=== PATIENT | male | born 2000 | race Caucasian/White ===

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

== ENCOUNTER 2022-02-15 00:31 | Emergency (ER) | payer MEDICAID, SELFPAY ==
[2022-02-15 00:33] VITALS: BP 159/93; PULSE 61; RESP 18; TEMP 36.6; O2SAT 100; BMI 28.6
--- NOTE | 2022-02-15 02:20 | RAD_ITS ---
INDICATION: CP EXAMINATION: Frontal and lateral views of the chest. COMPARISON: Chest x-ray from December 22, 2019. FINDINGS: Frontal and lateral views of the chest were obtained. The cardiac silhouette is not enlarged. No confluent airspace disease. No pleural effusion or pneumothorax. No acute fracture identified. RAD/Chest PA and Lateral IMPRESSION: No acute pulmonary disease. Electronically Signed: Fareed Gao MD at 2:58 EDT ,
--- NOTE | 2022-02-15 04:04 | ED.RN ---
SEE DOWN TIME CHARTING FROM [id number]
[2022-02-15 04:31] VITALS: BP 134/80; PULSE 52; RESP 18; TEMP 36.8; O2SAT 100
[2022-02-15 07:23] LABS: Absolute Lymphocyte Count 2.55 X10^3/uL (0.83-4.51); Absolute Neutrophil Count 4.7 X10^3/uL (2.0-7.7); Basophil# 0.09 X10^3/uL; Basophil% 1.1 % (0-1); Eosinophil# 0.24 X10^3/uL; Eosinophils% 2.9 % (0-5); Hematocrit 38.6 % (40-54); Hemoglobin 13.6 g/dL (13.0-16.5); Lymphocyte # 2.55 X10^3/ul (0.83-4.51); Lymphocyte % 31.1 % (19-41); Mean Corp Hgb Conc 35.2 g/dL (32-36); Mean Corpuscular Hgb 31.9 pg (27.0-32.0); Mean Corpuscular Volume 90.6 fL (80-94); Mean Platelet Vol. 10.6 fl (6.2-12.0); Monocyte# 0.63 X10^3/uL; Monocyte% 7.7 % (0-10); NRBC Flagged by Analyzer 0 % (0-5); Neutrophil # 4.68 X10^3/uL (2.7-7.7); Neutrophil % 57.1 % (47-70); Platelet Count 214 K/mm3 (150-450); RBC Distribution Width SD 39.7 fl (35.1-43.9); Red Blood Count 4.26 M/mm3 (4.6-6.2); White Blood Count 8.2 K/mm3 (4.4-11.0)
[2022-02-15 07:24] LABS: D-Dimer Quantitative (DVT/PE) 0.36 FEU/ug/m (0.27-0.49)
[2022-02-15 07:47] LABS: Anion Gap 4 (5-15); BUN 15 mg/dL (7-18); BUN/Creat Ratio 15.3 RATIO (10-20); Chloride 106 mmol/L (98-107); Creatinine, Serum 0.98 mg/dL (0.70-1.30); EST Glomerular Filtration Rate 103 mL/min (>60); Est Glom Filt Rate - Afr Amer 125 mL/min (>60); Estimated Creatinine Clearance 123.12 ml/min; Glucose 87 mg/dL (74-106); Potassium 3.8 mmol/L (3.5-5.1); Sodium Level 140 mmol/L (136-145)
--- NOTE | 2022-02-15 08:30 | EX.ED.DYSGE1 ---
HPI History of Present Illness Chief Complaint: GI Bleed Informant: patient Onset/Context/Timing Onset: Today (JPTA) Context: Sudden Onset Timing: - (once) Quality: spit up a lot of blood Location: unclear; throat? 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 He states suddenly he felt like he needed to gag and spit something up and he ended up spitting up a lot of blood. He states he felt like he was going to vomit initially, almost gagging, but he never vomited and he did not cough it up. He states he does not know where it came from maybe his throat. Right now he is asymptomatic except for having some mild mid chest pain and left upper quadrant pain, but afterwards he felt a little lightheaded but he did not have any near-syncope or syncope. States he has never had this happen before. He denies any recent nosebleed. No recent injury or illness. He has not been coughing recently. No leg pain or swelling. No recent travel out of the area or history of DVT/PE. He is healthy otherwise and takes no medications or drugs. PFSH PFSH Medical History no medical history no medical history Home Medications fluticasone propionate 50 mcg/actuation nasal spray,suspension 1 spray NASAL DAILY PRN PRN Congestion 12/22/19 [History Last Taken Unknown] loratadine 10 mg capsule 10 mg PO DAILY PRN PRN ALLERGY 12/22/19 [History Last Taken Unknown] naproxen 500 mg tablet 500 mg PO BID #14 tabs 12/22/19 [Rx Last Taken Unknown] Allergy/AdvReac Type Severity Reaction Status Date / Time No Known Allergies Allergy Verified 12/22/19 08:26 Surgical History no surgical history no surgical history Social History Smoking Status: Current every day smoker tobacco type: cigarettes and e-cigarettes ROS ROS ED Constitutional Constitutional ED: Denies chills or fever(s) Eyes Eyes: Denies change in vision or diplopia ENT ENT ED: Denies ear pain, epistaxis, rhinorrhea or sore throat Cardiovascular Cardiovascular: Reports chest pain; Denies palpitations Respiratory/Chest Respiratory/Chest: Denies cough or dyspnea Gastrointestinal Gastrointestinal: Reports abdominal pain; Denies diarrhea, nausea or vomiting Genitourinary Genitourinary ED: Denies dysuria or hematuria Musculoskeletal Musculoskeletal: Denies back pain or neck pain Integumentary Denies abscess or rash Neurologic Neurologic: Denies headache(s), paresthesias or weakness Psychiatric Psychiatric: Denies anxiety or suicidal thoughts EXAM Physical Exam Const Vital Signs: 02/15/22 00:33 02/15/22 04:31 Temperature 98 F 98.2 F Temperature Source Temporal Pulse Rate 61 52 L Respiratory Rate 18 18 Blood Pressure 159/93 H 134/80 H Blood Pressure Mean 115 Pulse Ox 100 100 Oxygen Delivery Method Room Air Positive well nourished and well developed General Appearance ED: well developed and NAD HEENT Reports moist mucous membranes normocephalic and atraumatic Eyes PERRL and EOMs intact bilaterally Neck full ROM and supple Chest Wall inspection of chest normal and palpation of chest normal Resp normal respiratory effort and clear to auscultation bilaterally Cardio regular rate, regular rhythm and no murmurs Rate: Negative for tachycardic GI non-tender and non-distended Auscultation: normoactive bowel sounds Palpation: soft Back/Spine no CVA tenderness General Back: other FROM Extremity normal to inspection General Extremety ED: Negative for edema, pulses abnormal or tenderness General Extremity: Negative for edema or pulses abnormal Neuro oriented x3, CN's II-XII intact bilaterally and no sensory deficits noted Sensorium / Orientation: awake and alert Motor Exam: strength 5/5 throughout Skin no rashes or lesions noted and no wounds MDM MDM MDM Narrative Medical decision making narrative: Do not suspect this is cardiac in etiology. Patient's vital signs are normal, he had hypertension 159/93 on initial read but after that on recheck it is normal. The rest of his vital signs are normal. I still did a D-dimer, and it returned negative, and the rest of his labs are normal as well. Chest x-ray normal 2 views of my interpretation. Patient is feeling fine on reexamination. Etiology of this is unknown, but I think it would be reasonable to put him on 2 weeks of a PPI to cover worst case scenarios and have him follow-up, he was given a PCP to follow-up with the next doctor on the unassigned list. He is comfortable with that plan. Lab Data Attestation: I reviewed the patient's lab results. Labs: Laboratory Results - last 24 hr 02/15/22 02/15/22 02/15/22 02:10 02:10 02:11 WBC 8.2 RBC 4.26 L Hgb 13.6 Hct 38.6 L MCV 90.6 MCH 31.9 MCHC 35.2 RDW Std Deviation 39.7 RDW Coeff of Catherine 12.0 Plt Count 214 MPV 10.6 Immature Gran % (Auto) 0.100 Neut % (Auto) 57.1 Lymph % (Auto) 31.1 [place] % (Auto) 7.7 Eos % (Auto) 2.9 Baso % (Auto) 1.1 H Absolute Neuts (auto) 4.7 Absolute Lymphs (auto) 2.55 Nucleated RBC % 0 D-Dimer Quant (PE/DVT) 0.36 Sodium 140 Potassium 3.8 Chloride 106 Carbon Dioxide 30.0 Anion Gap 4 L BUN 15 Creatinine 0.98 Estim Creat Clear Calc 123.12 Est GFR (MDRD) Af Amer 125 Est GFR (MDRD) Non-Af 103 BUN/Creatinine Ratio 15.3 Glucose 87 Calcium 9.0 Radiography Chest X-Ray - ED: 2 View, Read by ED Physician, No Acute Disease and No Infiltrates Diagnostic Testing: Clinical Impression(s) from Imaging Studies Chest X-Ray 02/15/22 02:20 IMPRESSION: No acute pulmonary disease. Electronically Signed: Fareed Gao MD at 2:58 EDT , Rhythm Strip Rhythm Strip: Sinus Rhythm Rate: 60 Ectopy: None Discharge Plan Triage Chief Complaint: GI Bleed ED Provider: Italo Will Dx/Rx/DC Orders Clinical Impression: Chest pain, Acute abdominal pain in left upper quadrant, Spitting up blood Prescriptions: No Action fluticasone propionate 1 SPRAY spray,suspension 1 spray NASAL DAILY PRN PRN (Reason: Congestion) loratadine 10 MG capsule 10 mg PO DAILY PRN PRN (Reason: ALLERGY) naproxen 500 MG tablet 500 mg PO BID Qty: 14 0RF Primary Care Provider: Denisse Benson Referrals: Denisse Benson MD [Primary Care Provider] - Activity Restrictions/Additional Instructions: (Seen during computer downtime and given appropriate preprinted discharge instructions and follow-up referral) Disposition Disposition: Home, Self Care Discharge Date/Time: 02/15/22 04:25
== END 2022-02-15 04:25 | disposition home or self-care (01) ==
PROVIDERS: Emergency Provider Emergency Medicine; PCP Pediatrics; Visit Provider Emergency Medicine
DX: R04.2 Hemoptysis (principal); R07.9 Chest pain, unspecified; I10 Essential (primary) hypertension; R10.12 Left upper quadrant pain; R42 Dizziness and giddiness; F17.210 Nicotine dependence, cigarettes, uncomplicated; F17.290 Nicotine dependence, other tobacco product, uncomplicated
CPT/HCPCS: 71046; 80048; 85025; 85379; 96360; 99282; 99284; J7030

== ENCOUNTER 2022-06-10 15:01 | Emergency (ER) | payer MEDICAID, SELFPAY ==
[2022-06-10 15:02] VITALS: BP 134/72; PULSE 72; RESP 15; TEMP 36.4; O2SAT 99
[2022-06-10 15:10] VITALS: BMI 28.8
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
--- NOTE | 2022-06-10 15:26 | RAD_ITS ---
INDICATION: injury -- pinky EXAMINATION/TECHNIQUE: X-RAY - LEFT HAND XR Fingers Min 2 Views 3 VIEWS COMPARISON: None. FINDINGS: SOFT TISSUES: No soft tissue swelling or gas. No radiopaque foreign body. BONES/JOINTS: There is a cortical defect within the proximal metaphysis of the distal phalanx consistent with a fracture. Normal alignment. Preservation of the joint space. No sclerotic or destructive changes observed. RAD/Finger(s) Min 2 Views IMPRESSION: Distal phalanx fracture. Electronically Signed: Latonya Kidd MD at 15:46 EST ,
== END 2022-06-10 16:12 | disposition home or self-care (01) ==
PROVIDERS: Emergency Provider Emergency Medicine; PCP Pediatrics; Visit Provider Emergency Medicine
DX: S62.667A Nondisplaced fracture of distal phalanx of left little finger, initial encounter for closed fracture (principal); R20.2 Paresthesia of skin; F17.210 Nicotine dependence, cigarettes, uncomplicated; F17.290 Nicotine dependence, other tobacco product, uncomplicated; X58.XXXA Exposure to other specified factors, initial encounter; Y99.0 Civilian activity done for income or pay
CPT/HCPCS: 73140; 99282

== ENCOUNTER 2022-07-21 20:15 | Emergency (ER) | payer OTHER, SELFPAY ==
[2022-07-21 20:16] VITALS: BP 137/94; PULSE 102; RESP 18; TEMP 37.2; O2SAT 100; BMI 27.6
[2022-07-21 21:46] VITALS: O2SAT 95
[2022-07-21] MEDS: Ipratropium/Albuterol Sulfate 3 ML AMPUL.NEB INHALATION (22:22)
[2022-07-21 22:23] VITALS: PULSE 86; RESP 14
[2022-07-21 22:26] LABS: Absolute Neutrophil Count 3.1 X10^3/uL (2.0-7.7); Basophil# 0.05 X10^3/uL; Basophil% 0.9 % (0-1); Eosinophil# 0.14 X10^3/uL; Eosinophils% 2.6 % (0-5); Hematocrit 40.6 % (40-54); Hemoglobin 13.9 g/dL (13.0-16.5); Lymphocyte % 27.4 % (19-41); Mean Corp Hgb Conc 34.2 g/dL (32-36); Mean Corpuscular Volume 90.4 fL (80-94); Mean Platelet Vol. 10.9 fl (6.2-12.0); Monocyte# 0.67 X10^3/uL; Monocyte% 12.2 % (0-10); NRBC Flagged by Analyzer 0 % (0-5); Neutrophil # 3.11 X10^3/uL (2.7-7.7); Neutrophil % 56.7 % (47-70); Platelet Count 218 K/mm3 (150-450); RBC Distribution Width CV 11.4 % (11.6-14.6); RBC Distribution Width SD 38.1 fl (35.1-43.9); Red Blood Count 4.49 M/mm3 (4.6-6.2); White Blood Count 5.5 K/mm3 (4.4-11.0)
--- NOTE | 2022-07-21 22:35 | RAD_ITS ---
STUDY: X-RAY CHEST REASON FOR EXAM: Male, 22 years old. Sob TECHNIQUE: PA and lateral views of the chest. COMPARISON: February 15, 2022 chest x-ray FINDINGS: The lungs are clear and expanded. There is no demonstrated pleural abnormality. Normal size heart. Normal mediastinum and drake. Normal visualized pulmonary arteries. Normal visualized aortic arch and descending thoracic aorta. Normal visualized thoracic spine. Normal visualized ribs, clavicles, and shoulders. There is no demonstrated abnormality of the visualized soft tissue structures of the upper abdomen. RAD/Chest PA and Lateral IMPRESSION: Normal x-ray examination of the chest. Electronically Signed: Adri Almendarez MD at 22:53 EDT Reading Location ID and State: [facility] / [place] Tel , Service support ,
[2022-07-21 22:45] LABS: Anion Gap 7 (5-15); BUN 11 mg/dL (7-18); BUN/Creat Ratio 11.1 RATIO (10-20); Calcium,Total 8.9 mg/dL (8.5-10.1); Chloride 103 mmol/L (98-107); Creatinine, Serum 0.99 mg/dL (0.70-1.30); EST Glomerular Filtration Rate 100 mL/min (>60); Est Glom Filt Rate - Afr Amer 122 mL/min (>60); Estimated Creatinine Clearance 121.87 ml/min; Glucose 93 mg/dL (74-106); Potassium 3.4 mmol/L (3.5-5.1); Sodium Level 139 mmol/L (136-145)
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
[2022-07-21 23:42] VITALS: BP 118/75; PULSE 89; RESP 16; O2SAT 99
[2022-07-21] MEDS: Potassium Chloride Oral Tablet 20 MEQ 40 MEQ PO (23:45)
[2022-07-21] MEDS: predniSONE 20 MG Tablet 40 MG PO (23:46)
== END 2022-07-21 23:50 | disposition home or self-care (01) ==
PROVIDERS: Emergency Provider Emergency Medicine; PCP Pediatrics; Visit Provider Emergency Medicine
DX: J68.0 Bronchitis and pneumonitis due to chemicals, gases, fumes and vapors (principal); F17.210 Nicotine dependence, cigarettes, uncomplicated; F17.290 Nicotine dependence, other tobacco product, uncomplicated; Z57.9 Occupational exposure to unspecified risk factor; Z79.52 Long term (current) use of systemic steroids
CPT/HCPCS: 71046; 80048; 85025; 85379; 87428; 93005; 94640; 99285